=== PATIENT | female | born 1965 | race Two or more races ===

== ENCOUNTER 2018-12-24 09:33 | Outpatient (CLI) | payer OTHER ==
[~2018-12-24] VITALS: Ht 157.5 cm; Wt 62.6 kg
--- NOTE | 2018-12-24 10:27 | General Progress Note ---
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 pylori] as the cause of diseases classified elsewhere SNOMED: 995335545 (2) Colon polyp ICD Codes: K63.5 - Polyp of colon SNOMED: 18240167 (3) Abdominal pain ICD Codes: R10.9 - Unspecified abdominal pain SNOMED: 82678121 Assessment/Plan treat for HP RTC in 3 months for BT repeat colon in 5 years Subjective ROS Limited/Unobtainable: Yes Objective General Appearance: alert EENT: normal ENT inspection Neck: supple Cardiovascular: normal rate Respiratory/Chest: lungs clear Abdomen: normal bowel sounds, non tender, soft Extremities: non-tender Slava Billings MD Dec 24, 2018 10:27
[2018-12-24] MEDS ORDERED: no medications (13:51)
[2018-12-24 13:52] VITALS: BP 126/78
== END 2018-12-24 15:29 | disposition home or self-care (01) ==
LOC: PAN 09:33
DX: K29.60 Other gastritis without bleeding (principal); B96.81 Helicobacter pylori [H. pylori] as the cause of diseases classified elsewhere; K63.5 Polyp of colon; R10.9 Unspecified abdominal pain